=== PATIENT | male | born 1995 ===

== ENCOUNTER → 2024-10-25 | Outpatient (CLI) | payer SELFPAY ==
[2024-10-25 12:44] LABS: Adenovirus F 40/41 Not Detected (NOT DETECT); Astrovirus Not Detected (NOT DETECT); Campylobacter Sp Not Detected (NOT DETECT); Cryptosporidium Not Detected (NOT DETECT); Cyclospora Cayetanensis Not Detected (NOT DETECT); E. Coli O157 Not Detected (NOT DETECT); Entamoeba Histolytica Not Detected (NOT DETECT); Enteroaggregative E. coli-EAEC Not Detected (NOT DETECT); Enteropathogenic E. coli-EPEC Not Detected (NOT DETECT); Enterotoxigenic E. coli-ETEC Not Detected (NOT DETECT); Giardia Lamblia Not Detected (NOT DETECT); Norovirus GI/GII Not Detected (NOT DETECT); Plesiomonas Shigelloides Not Detected (NOT DETECT); Rotavirus A Not Detected (NOT DETECT); Salmonella Sp Not Detected (NOT DETECT); Sapovirus Not Detected (NOT DETECT); Shiga Toxin-prod E. coli-STEC Not Detected (NOT DETECT); Shigella/Enteroin E. coli-EIEC Not Detected (NOT DETECT); Vibrio Cholerae Not Detected (NOT DETECT); Vibrio Sp Not Detected (NOT DETECT); Yersinia Enterocolitica Not Detected (NOT DETECT)
== END ==
LOC: LAB SHORT 10:44
PROVIDERS: Student in an Organized Health Care Education/Training Program
DX: R19.7 Diarrhea, unspecified (principal); R53.82 Chronic fatigue, unspecified
CPT/HCPCS: 87507

== ENCOUNTER → 2024-12-20 | Outpatient (CLI) | payer OTHER ==
[2024-12-20 20:47] LABS: Alanine Aminotransfer (ALT/SGP 23 U/L (12-78); Albumin, Blood 3.8 g/dL (3.4-5.0); Albumin/Globulin Ratio 1.2 (0.8-1.8); Alk Phos 47 U/L (50-136); Aspartate Aminotrans (AST/SGOT 15 U/L (12-37); Bilirubin, Direct 0.1 mg/dL (0.0-0.3); Bilirubin, Indirect 0.5 mg/dL (0.1-0.7); Bilirubin, Total 0.6 mg/dL (0.1-1.0); CHOL/HDL RATIO 1.6; Cholesterol 152 mg/dL (50-200); Globulin, Blood 3.3 g/dL (2.2-4.0); HDL Cholesterol 95 mg/dL (>39); LDL/HDL RATIO 0.5; Low Density Lipoprotein Chol 46 mg/dL (0-110); Total Protein, Blood 7.1 g/dL (6.4-8.2); Triglycerides 55 mg/dL (30-140); Very Low Density Lipoprot Chol 11 mg/dL (6-28)
[2024-12-21 13:59] LABS: Percent Saturation 29.9 % (20.0-50.0)
== END | disposition home or self-care (01) ==
LOC: LAB SHORT 18:37
PROVIDERS: Nurse Practitioner Family
DX: K21.9 Gastro-esophageal reflux disease without esophagitis (principal); R73.9 Hyperglycemia, unspecified
CPT/HCPCS: 80061; 80076; 82607; 82746; 83540; 83550

== ENCOUNTER → 2025-01-12 | Outpatient (CLI) | payer OTHER | LOC: LAB SHORT 10:45 → LAB 10:45 | DX: K21.9 Gastro-esophageal reflux disease without esophagitis (principal) | CPT/HCPCS: 87338 ==

== ENCOUNTER → 2025-05-05 | Outpatient (CLI) | payer OTHER ==
[2025-05-07 22:23] LABS: ANTI-NUCLEAR AB ANA,IGG ELISA None Detected (None Detected)
[2025-05-08 15:54] LABS: HIV 1,2 COMBO ANTIGEN/ANTIBODY Negative (Negative)
[2025-05-08 16:08] LABS: HEPATITIS C AB CIA INTERP Negative (Negative); HEPATITIS C ANTIBODY CIA INDEX 0.06 IV
[2025-05-11 14:44] LABS: TESTOSTERONE, FREE BY DIALYSIS 84.1 pg/mL (47.0-244.0); TESTOSTERONE, TOTAL MASS SPEC 548.7 ng/dL (300.0-1080.0)
== END ==
LOC: LAB SHORT 19:28 → LAB 19:28
PROVIDERS: Nurse Practitioner Family
DX: Z11.3 Encounter for screening for infections with a predominantly sexual mode of transmission (principal); Z11.59 Encounter for screening for other viral diseases; R63.4 Abnormal weight loss
CPT/HCPCS: 82105; 82533; 84402; 84403; 84439; 84481; 86038; 86592; 86803; 87389

== ENCOUNTER → 2025-05-05 | Outpatient (CLI) | payer OTHER ==
[2025-05-06 07:54] LABS: Chlamydia Trachomatis Urine NOT DETECTED (NOT DETECT); Neisseria Gonorrhoea Urine NOT DETECTED (NOT DETECT)
== END ==
LOC: LAB SHORT 20:02 → LAB 20:02
PROVIDERS: Nurse Practitioner Family
DX: Z11.3 Encounter for screening for infections with a predominantly sexual mode of transmission (principal)
CPT/HCPCS: 87491; 87591